=== PATIENT | female | born 1945 | race Caucasian/White ===

== ENCOUNTER → 2025-06-04 | Outpatient (CLI) | payer MEDICARE, SELFPAY ==
--- NOTE | 2025-06-04 12:59 | MRI_ITS ---
PROCEDURE: BRAIN W/WO CONTRAST 06/04/2025 REASON FOR EXAM: ATTN ORBITS TECHNIQUE: Procedure Code: [id number] Modality: MR Procedure: BRAIN W/WO CONTRAST Multiplanar and multisequence images were obtained. CONTRAST: Clariscan VOLUME: 9 mL COMPARISON: None. FINDINGS: Brain: No restricted diffusion. No hemorrhage. White matter changes hyperintense signal on T2 and FLAIR which are nonspecific but most likely due to chronic small-vessel ischemia. Moderate brain atrophy. No abnormal enhancement. The cerebellopontine angles are unremarkable. No masses. The orbits are within normal limits including the globes, extra ocular muscles and optic nerves in addition to the lacrimal glands. Ventricles: Dilated out of proportion to the degree of cerebral atrophy. Major Intracranial Vessels: Patent Sinuses: Clear Mastoids: Clear MRI/Brain W/WO Contrast IMPRESSION: Unremarkable MRI of the brain and orbits without acute abnormalities. Reading Location: [id number]
== END | disposition home or self-care (01) ==
PROVIDERS: PCP Family Medicine; Referring Provider Ophthalmology; Visit Provider Ophthalmology
DX: H53.2 Diplopia (principal); H51.8 Other specified disorders of binocular movement; H49.11 Fourth [trochlear] nerve palsy, right eye
CPT/HCPCS: 70553; A9575